=== PATIENT | female | born 1960 | race African-American/Black ===

== ENCOUNTER 2024-05-14 11:51 | Emergency (ER) | payer OTHER ==
[~2024-05-14] VITALS: Ht 167.6 cm; Wt 108.0 kg
[2024-05-14 11:55] VITALS: O2SAT 100
[2024-05-14 12:26] LABS: BASOPHILS % 0.5 % (0.0-2.0); HEMATOCRIT. 33.7 % (36.0-48.0); HEMOGLOBIN. 11.1 g/dL (12.0-16.0); LYMPHOCYTES % 23.2 % (20.0-50.0); MEAN CORPUSCULAR HEMOGLOBIN 32.1 pg (28.0-32.0); MEAN CORPUSCULAR HGB CONC 32.9 g/dL (31.0-37.0); MEAN CORPUSCULAR VOLUME 97.5 fL (81.0-99.0); MONOCYTES % 4.9 % (2.0-8.0); NEUTROPHILS % 70.4 % (40.0-76.0); PLATELET 219 x1000/uL (130-400); RED BLOOD CELL COUNT 3.46 mill/uL (4.2-5.4); RED CELL DISTRIBUTION WIDTH 15.2 % (11.6-14.6); WHITE BLOOD COUNT 8.5 x1000/uL (4.5-11.0)
[2024-05-14] MEDS: ONDANSETRON HCL 4MG/2ML INJ IV STA (12:38)
[2024-05-14 12:43] LABS: CHLORIDE 109 mEq/L (98-107); POTASSIUM 3.6 mEq/L (3.5-5.1); SODIUM 142 mEq/L (136-145)
[2024-05-14 12:44] LABS: CALCIUM 9.2 mg/dL (8.7-10.4); CARBON DIOXIDE 27 mEq/L (21-32)
[2024-05-14 12:49] LABS: CREATININE 0.7 mg/dL (0.6-1.0); GLUCOSE 133 mg/dL (70-105); UREA NITROGEN BLOOD 15 mg/dL (9-23)
[2024-05-14 13:25] LABS: TROPONIN I HIGH SENSITIVITY < 4 ng/L (3.0-34)
[2024-05-14 13:43] LABS: D-DIMER 0.39 mg/L FEU (<0.50); INR 0.9; PROTHROMBIN TIME 10.1 sec (9.6-11.0)
[2024-05-14] MEDS: MORPHINE SULFATE 4 MG/ML INJ (FOR IV/IM USE) IV ONE (13:53)
[2024-05-14 14:47] LABS: TROPONIN I HIGH SENSITIVITY 4 ng/L (3.0-34)
[2024-05-14] MEDS ORDERED: IOHEXOL-350 100 ML BOTTLE ONE (14:55)
[2024-05-14] MEDS ORDERED: CYCL10TA21 MT (15:08)
[2024-05-14] MEDS ORDERED: CELE100C MT (15:08)
[2024-05-14 15:19] VITALS: TEMP 97.8
[2024-05-14] MEDS: CYCLOBENZAPRINE 10MG TABLET PO ONE (15:37)
[2024-05-14 15:38] VITALS: BP 138/76; PULSE 75; RESP 18
[2024-05-14] MEDS: KETOROLAC 15MG/ML VIAL IV ONE (15:38)
== END 2024-05-14 16:12 | disposition home or self-care (01) ==
LOC: ER 11:51
DX: M54.10 Radiculopathy, site unspecified (principal); I10 Essential (primary) hypertension; E78.00 Pure hypercholesterolemia, unspecified; Z98.890 Other specified postprocedural states
CPT/HCPCS: 99285; 96374; 71275; 96375; 71045; 80048; 83880; 85025; 85379; 85610; 84484; 93005; 36415; Q9967; J1885; J2405; J2270